=== PATIENT | female | born 1950 | race Caucasian/White ===

== ENCOUNTER 2019-05-12 08:00 | Day surgery (SDC) | payer MEDICARE, BC ==
[2019-05-12] VITALS (8 sets, daily range): BP systolic 114–131; BP diastolic 71–95
[~2019-05-12] VITALS: Ht 162.6 cm; Wt 82.0 kg
[~2019-05-12 08:00] MED LIST: AMLO5TAB16 PO; ATOR10TA70 PO; LEVO88TA7 PO; cefazolin/dext.iso 2gm/100ml 100 ML IV ONE; famotidine 10mg tablet PO ONE; ringers solution, lacted 1,000 ML IV SCH
[2019-05-12] MEDS ORDERED: ondansetron/PF 4mg/2ml inj IV PRN ×2 (08:35→12:10)
[2019-05-12] MEDS ORDERED: morphine 4 MG/ML inj SYRINge IV PRN ×4 (08:35→12:10)
[2019-05-12] MEDS ORDERED: fentaNYL/PF 50MCG/1 ML 2ML syringe IV PRN ×4 (08:35→12:10)
[2019-05-12] MEDS ORDERED: labetalol 20mg/4ml (5mg/ml) syringe IV PRN ×2 (08:35→12:10)
[2019-05-12] MEDS ORDERED: hydrALAZINE 20mg/ml inj. IV PRN ×2 (08:35→12:10)
[2019-05-12] MEDS ORDERED: ringers solution, lacted 1,000 ML IV SCH ×2 (08:35→12:07)
[2019-05-12 10:09] LABS: BASOPHILS # (AUTO) 0.1 X10'3 (0-0.2); BASOPHILS % (AUTO) 0.9 % (0-1); EOSINOPHILS % (AUTO) 0.8 % (0-6); LYMPHOCYTES # (AUTO) 1.1 X10'3 (1.1-4.8); LYMPHOCYTES % (AUTO) 18.5 % (21-51); MEAN CORPUSCULAR HEMOGLOBIN 32.5 PG (27.0-31.0); MEAN CORPUSCULAR HGB CONC 34.3 g/dL (33.0-36.5); MEAN CORPUSCULAR VOLUME 94.7 FL (78-98); MEAN PLATELET VOLUME 7.7 FL (7.4-10.4); MONOCYTES # (AUTO) 0.4 X10'3 (0-0.9); MONOCYTES % (AUTO) 7.1 % (2-12); NEUTROPHILS # (AUTO) 4.3 X10'3 (1.8-7.7); NEUTROPHILS % (AUTO) 72.7 % (42-75); PRE OP HEMOGLOBIN 14.1 g/dL (12.0-16.0); PRE OP PLATELET COUNT 291 X10'3 (140-440); RED BLOOD COUNT 4.33 X10'6 (4.20-5.60); RED CELL DISTRIBUTION WIDTH 13.1 % (11.5-14.5)
[2019-05-12 10:26] LABS: ALBUMIN 3.9 G/DL (3.4-5.0); ALBUMIN/GLOBULIN RATIO 1.1 (1.1-1.5); ALKALINE PHOSPHATASE 97 IU/L (46-116); BLOOD UREA NITROGEN 14 MG/DL (7-18); BUN/CREATININE RATIO 17.7 (6.6-38.0); CHLORIDE 104 MMOL/L (99-107); CREATININE 0.79 MG/DL (0.40-0.90); PRE OP ALT 34 U/L (30-65); PRE OP ANION GAP 12 (8-16); PRE OP AST 19 U/L (10-37); PRE OP BILIRUB, TOTAL 0.5 MG/DL (0.0-1.0); PRE OP GLUCOSE 95 MG/DL (70-104); PRE OP POTASSIUM 3.7 MMOL/L (3.4-5.1); PRE OP SODIUM 141 MMOL/L (135-145); TOTAL PROTEIN 7.6 G/DL (6.4-8.2); eGFR 72 ML/MIN
[2019-05-12] MEDS ORDERED: BUPIVAcaine/PF 2.5 mg/ml (0.25%) 30ml vial ONE (12:27)
[2019-05-12] MEDS ORDERED: LIDOcaine 1% 30ml preserv. free vial ONE (12:27)
[2019-05-12] MEDS ORDERED: sevoflurane 250ml liquid IH ONE (12:47)
[2019-05-12] MEDS ORDERED: MIDAZolam 5mg/5ml vial ONE (12:51)
[2019-05-12] MEDS ORDERED: morphine 10mg/ml inj. ONE (12:58)
[2019-05-12] MEDS ORDERED: propofol inj 20 ML IV ONE (12:59)
[2019-05-12] MEDS ORDERED: LIDOcaine 2% (20mg/ml) 5ml vial ONE (12:59)
[2019-05-12] MEDS ORDERED: dexamethasone sod phosphate 4mg/ml inj. ONE (13:01)
[2019-05-12] MEDS ORDERED: ondansetron/PF 4mg/2ml inj ONE (13:01)
--- NOTE | 2019-05-12 13:24 | NUR ---
Received from OR via [facility] , accompanied by Anesthesiologist GIO and report given by Anesthesiolgist. PATIENT WITH 20G PIV IN LEFT UE RUNNING LR AT 100. PATIENT WITH LEFT LATERAL NECK SMALL TELFA DRESSING THAT IS CDI.DENIES PAIN AT THIS TIME. VSS. Addendum: 05/12/19 at 1339 by Sebas Shaffer RN, RN Amended: Links added.
--- NOTE | 2019-05-12 14:34 | NUR ---
ALL DC CRITERIA HAS BEEN MET FOR DISCHARGE. IV OUT WITHOUT COMPLICATIONS. DENIES PAIN, LEFT NECK DRESSING IS CDI. SPOUSE PRESENT TO HEAR DC INSTRUCTIONS, ASK QUESTIONS AND DRESS PATIENT .VSS. OUT VIA WHEELCHAIR TO PERSONAL VEHICLE WHERE SPOUSE DROVE PATIENT HOME. SPOUSE STATES THAT HE IS COMFORTABLE TAKING PATIENT HOME. Addendum: 05/12/19 at 1448 by Sebas Shaffer RN, RN Amended: Links added.
== END 2019-05-12 14:34 | disposition home or self-care (01) ==
LOC: PAS 08:00
PROVIDERS: ATTEND Surgery
DX: R59.1 Generalized enlarged lymph nodes (principal); I10 Essential (primary) hypertension; F41.9 Anxiety disorder, unspecified; E89.0 Postprocedural hypothyroidism; Z88.8 Allergy status to other drugs, medicaments and biological substances; Z79.899 Other long term (current) drug therapy; Z98.890 Other specified postprocedural states
CPT/HCPCS: 36415; 38500; 80053; 85025; 93005; J1100; J2001; J2250; J2270; J2405; J2704; J3490; J7120; A4215; A4618; A7000